=== PATIENT | male | born 1980 | race Caucasian/White ===

== ENCOUNTER 2017-04-30 15:46 | Emergency (ER) | payer OTHER ==
[2017-04-30 16:29] LABS: BASOPHIL % 0.2 % (0.0-0.4); Basophil (Absolute #) 0.02 (0-0.4); Eosinophil % 1.1 % (0.00-5.0); Granulocyte Absolute (ANC) 6.85 (1.4-6.9); Granulocytes % 73.1 % (36.0-66.0); Hematocrit 44.5 % (42-50); Hemoglobin 14.5 gm/dl (12.5-18.0); Lymphocyte (Absolute #) 1.69 (1.0-4.6); Lymphocytes % 18.1 % (24.0-44.0); Mean Cell Volume 95.3 fl (78-100); Mean Corpuscular Hgb Concent. 32.6 g/dl (32-36); Mean Platelet Volume 9.4 fl (6-9.5); Monocytes % 7.5 % (0.0-12.0); Platelet Count 241 K/mm3 (150-450); Red Blood Count 4.67 M/mm3 (4.1-5.6); Red Cell Distribution Width 12.4 % (11.5-14.0); White Blood Count 9.4 K/mm3 (4.0-10.5)
[2017-04-30 16:45] LABS: ANION GAP 11.9 MEQ/L (5-15); BLOOD UREA NITROGEN 8 mg/dL (9-20); CHLORIDE 105 mEq/L (98-107); Calcium 9.1 mg/dL (8.5-10.1); Carbon Dioxide 28.2 mEq/L (21-32); Creatinine 1 0.95 mg/dl (0.55-1.30); EST GLOMERULAR FILTRATION RATE > 60 ML/MIN; Glucose 110 MG/DL (70-110); Potassium 4.3 mEq/L (3.5-5.1); SODIUM 141 mEq/L (136-145)
[2017-04-30 16:56] LABS: ETHYL ALCOHOL < 0.010 % (0.00-0.01)
[2017-04-30 18:15] VITALS: PULSE 80; O2SAT 94
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
[2017-04-30 19:23] VITALS: BP 113/78
== END 2017-04-30 19:24 | disposition home or self-care (01) ==
LOC: ED 15:46
DX: F19.10 Other psychoactive substance abuse, uncomplicated (principal); Z72.0 Tobacco use
CPT/HCPCS: 36415; 80048; 85025; 99282; G0480

== ENCOUNTER 2019-12-12 15:46 | Inpatient (IN) | payer OTHER ==
[2019-12-12] MEDS ORDERED: Sodium Chloride 0.9% 1000 ML 1,000 ML IV STA (16:05)
--- NOTE | 2019-12-12 16:12 | ERPHSYRPT ---
- History of Present Illness Time Seen by Provider: 12/12/19 16:08 Source: patient Exam Limitations: no limitations Patient Subjective Stated Complaint: pt co pain and swelling to right elbow off and on for 2 months, 2 weeks ago he had a abcess develop, Triage Nursing Assessment: pt walked in, resp easy, skin w./d/p. has swelling,warmth and reddness to right elbow, has small open area to elbow, no drainage at present time Physician History: pt co pain and swelling to right elbow off and on for 2 months, 2 weeks ago he had a abcess develop, c/o fever low grade, pain and swelling on right medial cubital area Occurred: yesterday Method of Injury: unknown Quality: constant Severity of Pain-Max: moderate Severity of Pain-Current: moderate Extremities Pain Location: elbow: right (pain, tenderness swelling), forearm: right, wrist: right, hand: right Modifying Factors: Improves With: nothing Associated Symptoms: fever Body Map: 1 - swelling, firm Allergies/Adverse Reactions: methylphenidate HCl [From Ritalin] Allergy (Intermediate, Verified 12/12/19 15:59) Hives Home Medications: Buprenorphine HCl/Naloxone HCl [Suboxone 8 mg-2 mg Tablet Sl] 2.5 ea DAILY 12/12/19 [History] Hx Tetanus, Diphtheria Vaccination/Date Given: No Hx Influenza Vaccination/Date Given: No Hx Pneumococcal Vaccination/Date Given: No Immunizations Up to Date: Yes Travel Risk - International Travel Have you traveled outside of the country in past 3 weeks: No - Coronavirus Screening Are you exhibiting any of the following symptoms?: No Close contact with a COVID-19 positive Pt in past 14-21 Days: No - Review of Systems Constitutional: Fever, Chills Eyes: No Symptoms Ears, Nose, & Throat: No Symptoms Respiratory: No Symptoms Cardiac: No Symptoms Abdominal/Gastrointestinal: No Symptoms Genitourinary Symptoms: No Symptoms Musculoskeletal: Joint Redness, Joint Pain, Joint Swelling Skin: No Symptoms Neurological: No Symptoms Psychological: No Symptoms Endocrine: No Symptoms - Past Medical History Pertinent Past Medical History: No History: Other - Past Surgical History Past Surgical History: No Gastrointestinal: Hernia Repair - Social History Smoking Status: Current every day smoker How long have you smoked: 18 Exposure to second hand smoke: No Alcohol Use: Socially Drug Use: marijuana Patient Lives Alone: No Significant Family History: no pertinent family hx - Nursing Vital Signs Nursing Vital Signs: Initial Vital Signs Pulse Rate 78 12/12/19 15:50 Respiratory Rate 18 12/12/19 15:50 Blood Pressure 129/82 12/12/19 15:50 O2 Sat by Pulse Oximetry 98 12/12/19 15:50 Pain Scale Pain Intensity 7 - Physical Exam General Appearance: no apparent distress Eyes, Ears, Nose, Throat Exam: normal ENT inspection Neck Exam: normal inspection Cardiovascular/Respiratory Exam: chest non-tender Abdominal Exam: non-tender Back Exam: normal inspection Shoulder Exam: normal inspection Elbow/Forearm Exam: limited ROM, pain, soft tissue tenderness, swelling Wrist Exam: normal inspection, soft tissue tenderness, swelling Hand Exam: normal inspection SpO2: 98 - Course Nursing assessment & vital signs reviewed: Yes - Radiology Exams Elbow X-ray Interpretation: Reviewed by me, Negative Ordered Tests: Active Orders 24 hr Category Date Time Status ELBOW (MINIMUM 3 VIEWS) Stat Exams 12/12/19 16:12 Taken BLOOD CULTURE Stat Lab 12/12/19 17:45 Ordered CBC W DIFF Stat Lab 12/12/19 16:05 Ordered CMP Stat Lab 12/12/19 16:05 Ordered Lactic Acid Stat Lab 12/12/19 16:05 Ordered UA W/RFX UR CULTURE Stat Lab 12/12/19 16:07 Uncollected Urine Triage Profile Stat Lab 12/12/19 16:07 Uncollected Medication Summary Discontinued Medications Generic Name Dose Route Start Last Admin Trade Name Freq PRN Reason Stop Dose Admin Heparin Sodium (Beef Lung) Confirm 12/12/19 17:03 Heparin Lock Flush 100 Units/Ml 5ml Syringe Administered 12/12/19 17:04 Dose 500 units .ROUTE .STK-MED ONE Sodium Chloride 1,000 mls @ 999 mls/hr 12/12/19 16:05 Sodium Chloride 0.9% 1000 Ml IV 12/12/19 17:05 .Q1H1M STA Sodium Chloride Confirm 12/12/19 16:14 Sodium Chloride 0.9% 1000 Ml Administered 12/12/19 16:15 Dose 1,000 mls @ ud .ROUTE .STK-MED ONE Lidocaine HCl Confirm 12/12/19 17:08 Xylocaine 1% Hcl 20 Ml Mdv Administered 12/12/19 17:09 Dose 1 ml .ROUTE .STK-MED ONE - Progress Progress: unchanged, pain not gone completely Progress Note: 12/12/19 17:40 Multiple attempts were tried on all 4 extremity right side of the neck left side of the neck as well as infraclavicular way to get IV access. We were unable to get IV access. Will call anesthesia microarray operations vice president to get an IV access. We will admit the patient for further IV antibiotic therapy for his left elbow cellulitis with mild compartment syndrome Discussed with Dr.: Kaitlin Will see patient in: hospital (observation) Counseled pt/family regarding: drug and/or alcohol abuse, lab results, diagnos is, need for follow-up, rad results - Departure Departure Disposition: Observation Clinical Impression: Cellulitis of right upper extremity Condition: Fair Critical Care Time: Yes Critical Care Time(excluding separately billable procedures): Critical 30-74 m ins Referrals: HIRA FISH [Primary Care Provider] -
[2019-12-12] MEDS ORDERED: Sodium Chloride 0.9% 1000 ML 1,000 ML ONE (16:14)
[2019-12-12] MEDS ORDERED: XYLOCAINE 1% HCL 20 ML MDV ONE (17:08)
[2019-12-12] MEDS ORDERED: ENOXAPARIN SODIUM SQ SCH (18:15)
[2019-12-12] MEDS ORDERED: ENOXAPARIN SODIUM SQ ONE (18:37)
[2019-12-12] MEDS ORDERED: Levofloxacin 500MG/100ML D5W 500 MG/100 ML BAG IV ONE (18:37)
[2019-12-12] MEDS: Levofloxacin 500MG/100ML D5W 500 MG/100 ML BAG IV SCH (18:38)
[2019-12-12 18:39] LABS: Absolute Neutrophil Ct (ANC) 21.45 (1.4-6.9); Basophil (Absolute #) 0.01 (0-0.4); Eosinophil (Absolute #) 0.01 (0-0.5); Hematocrit 43.4 % (42-50); Hemoglobin 14.4 gm/dl (12.5-18.0); Lymphocyte (Absolute #) 0.93 (1.0-4.6); Lymphocytes % 3.9 % (24.0-44.0); Mean Cell Volume 98.2 fl (78-100); Mean Corpuscular Hemoglobin 32.6 pg (26-32); Mean Corpuscular Hgb Concent. 33.2 g/dl (32-36); Mean Platelet Volume 9.2 fl (7.5-11.0); Monocyte (Absolute #) 1.16 (0.0-1.3); Monocytes % 4.9 % (0.0-12.0); Neutrophil % 91.2 % (36.0-66.0); Platelet Count 202 K/mm3 (150-450); Red Blood Count 4.42 M/mm3 (4.1-5.6); Red Cell Distribution Width 12.9 % (11.5-14.0); White Blood Count 23.6 K/mm3 (4.0-10.5)
[2019-12-12] MEDS ORDERED: MOTRIN 400 MG PO ONE (18:46)
[2019-12-12 18:52] LABS: ALBUMIN 4.1 g/dL (3.5-5.0); ALKALINE PHOSPHATASE 71 U/L (38-126); ANION GAP 10.4 MEQ/L (5-15); BLOOD UREA NITROGEN 17 mg/dL (9-20); CHLORIDE 97 mmol/L (98-107); Calcium 9.3 mg/dL (8.4-10.2); Carbon Dioxide 29 mmol/L (22-30); Creatinine 1 1.07 mg/dL (0.66-1.25); EST GLOMERULAR FILTRATION RATE > 60.0 ML/MIN; Glucose 129 mg/dL (74-106); Potassium 3.7 mmol/L (3.5-5.1); SGOT/AST 65 U/L (17-59); SGPT/ALT 44 U/L (0-50); SODIUM 133 mmol/L (137-145); Total Protein 8.2 g/dL (6.3-8.2)
--- NOTE | 2019-12-12 19:20 | XRAY ---
Indication: Pain. Comparison: None 3 view right elbow demonstrates mild diffuse soft tissue swelling/edema and at least 3 tiny metallic wire densities in the soft tissues anteriorly. No other bony, articular, or soft tissue abnormalities.
[2019-12-12] MEDS: VANCOMYCIN 1 GRAM/200 ML BAG 1 GM/200 ML PIGGYBACK IV SCH (20:18)
[2019-12-12] MEDS: Sodium Chloride 0.9% 1000 ML 1,000 ML IV SCH (20:22)
[2019-12-13] MEDS: Sodium Chloride 0.9% 1000 ML 1,000 ML IV SCH ×2 (00:27→13:42)
[2019-12-13 01:38] LABS: Appearance CLEAR (CLEAR); Bilirubin NEGATIVE (NEGATIVE); Blood NEGATIVE Ery/ul (0-5); Glucose NEGATIVE (NEGATIVE); Ketones NEGATIVE (NEGATIVE); Leukocyte Esterase NEGATIVE (NEGATIVE); Nitrite NEGATIVE (NEGATIVE); Protein,Urine Dip NEGATIVE (Negative); Specific Gravity 1.017 (1.005-1.025); Urobilinogen 2 mg/dL (0-1)
[2019-12-13 01:43] LABS: Bacteria NONE SEEN /HPF (NEGATIVE)
[2019-12-13] MEDS: VANCOMYCIN 1 GRAM/200 ML BAG 1 GM/200 ML PIGGYBACK IV SCH ×2 (05:49→17:18)
[2019-12-13 07:59] LABS: Amphetamine,Urine NEGATIVE (NEGATIVE); Barbiturate,Urine NEGATIVE (NEGATIVE); Benzodiazepine,Urine NEGATIVE (NEGATIVE); Cocaine,Urine NEGATIVE (NEGATIVE); Methadone,Urine NEGATIVE (NEGATIVE); Opiate,Urine NEGATIVE (NEGATIVE); PCP,Urine NEGATIVE (NEGATIVE); THC,Urine POSITIVE (NEGATIVE)
--- NOTE | 2019-12-13 08:50 | PCM.HP ---
History of Present Illness - Chief Complaint Chief Complaint: right upper extrimity cellulitis History of Present Illness: is a 39 year old male with a 2-3 day history of chills and redness/swelling to right upper extremity. 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 - Review of Systems Constitutional: Fever, Chills Respiratory: No Cough, No Short Of Breath Cardiac: No Chest Pain, No Edema, No Syncope Skin: Cellulitis All Other Systems: Reviewed and Negative Medications & Allergies Home Medications: Home Medication List Buprenorphine HCl/Naloxone HCl [Suboxone 8 mg-2 mg Tablet Sl] 2.5 ea DAILY 12/12/19 [History Confirmed 12/12/19] Allergies/Adverse Reactions: Allergies Allergy/AdvReac Type Severity Reaction Status Date / Time methylphenidate HCl Allergy Intermediate Hives Verified 12/12/19 15:59 [From Ritalin] - Past Medical History Past Medical History: Yes Neurological History: No Pertinent History ENT History: No Pertinent History Cardiac History: No Pertinent History Respiratory History: No Pertinent History Endocrine Medical History: No Pertinent History Musculoskelatal History: No Pertinent History GI Medical History: GERD History: Other Pyscho-Social History: No Pertinent History Male Reproductive Disorders: No Pertinent History Comment: hx of kidney stones - Past Surgical History Past Surgical History: Yes Neuro Surgical History: No Pertinent History Cardiac History: No Pertinent History Respiratory Surgery: No Pertinent History GI Surgical History: Hernia Repair Genitourinary Surgical Hx: No Pertinent History Musculskeletal Surgical Hx: No Pertinent History Male Surgical History: No Pertinent History Other Surgical History: hernia repair as a child - Social History Smoking Status: Current every day smoker How long have you smoked: 20+ Exposure to second hand smoke: No Alcohol: Rarely Drug Use: marijuana Significant Family History: no pertinent family hx - Physical Exam Vital Signs: Vital Signs - 24 hr Temp Pulse Resp BP Pulse Ox 12/13/19 05:00 98.4 F 89 20 130/81 94 L 12/13/19 00:00 98.6 F 84 19 96/62 94 L 12/12/19 19:41 96.3 F 83 18 128/74 99 12/12/19 18:03 98 12/12/19 15:50 78 18 129/82 98 General Appearance: no apparent distress Neurologic Exam: alert, oriented x 3, cooperative Respiratory Exam: normal breath sounds, lungs clear, No respiratory distress Cardiovascular Exam: regular rate/rhythm, normal heart sounds, normal peripheral pulses Gastrointestinal/Abdomen Exam: soft, normal bowel sounds, No tenderness, No mass Extremity Exam: other (moderate swelling, erythema and streaking right medial elbow, warm to palpation. no obvious area of fluctuance, healing superfical abrasion) Wound Assessment: Skin/Wound Assessment Wound/Incision Assessment Start: 12/12/19 20:00 Text: Status: Active Freq: Q6H Protocol: Document 12/13/19 07:49 DS (Rec: 12/13/19 07:59 DS [id number]) Wound/Incision Assessment Right Elbow Wound Assessment Shift Assessment Wound Type cyst Wound Stage Non Pressure Wound Drainage Amount None General Appearance Open to air,Clean/Dry,Reddened Comment right elbow swollen, red, warm to touch,. No drainage noted at this time. No dressing in place at this time. Wound Photo Photo Taken No Results - Labs Lab/Micro Results: Lab Results-Last 24 Hours 12/12/19 12/12/19 12/12/19 Range/Units 00:01 18:28 18:36 WBC 23.6 H (4.0-10.5) K/mm3 RBC 4.42 (4.1-5.6) M/mm3 Hgb 14.4 (12.5-18.0) gm/dl Hct 43.4 (42-50) % MCV 98.2 (78-100) fl MCH 32.6 H (26-32) pg MCHC 33.2 (32-36) g/dl RDW 12.9 (11.5-14.0) % Plt Count 202 (150-450) K/mm3 MPV 9.2 (7.5-11.0) fl Gran % 91.2 H (36.0-66.0) % Eos # (Auto) 0.01 (0-0.5) Absolute Lymphs (auto) 0.93 L (1.0-4.6) Absolute Monos (auto) 1.16 (0.0-1.3) Lymphocytes % 3.9 L (24.0-44.0) % Monocytes % 4.9 (0.0-12.0) % Eosinophils % 0.0 (0.00-5.0) % Basophils % 0.0 (0.0-0.4) % Absolute Granulocytes 21.45 H (1.4-6.9) Basophils # 0.01 (0-0.4) Sodium (137-145) mmol/L Potassium (3.5-5.1) mmol/L Chloride (98-107) mmol/L Carbon Dioxide (22-30) mmol/L Anion Gap (5-15) MEQ/L BUN (9-20) mg/dL Creatinine (0.66-1.25) mg/dL Estimated GFR ML/MIN Glucose (74-106) mg/dL Lactic Acid 0.9 (0.4-2.0) Calcium (8.4-10.2) mg/dL Total Bilirubin (0.2-1.3) mg/dL AST (17-59) U/L ALT (0-50) U/L Alkaline Phosphatase (38-126) U/L Serum Total Protein (6.3-8.2) g/dL Albumin (3.5-5.0) g/dL Urine Color YELLOW (YELLOW) Urine Appearance CLEAR (CLEAR) Urine pH 6.0 (5-6) Ur Specific [place] 1.017 (1.005-1.025) Urine Protein NEGATIVE (Negative) Urine Ketones NEGATIVE (NEGATIVE) Urine Blood NEGATIVE (0-5) Kai/ul Urine Nitrite NEGATIVE (NEGATIVE) Urine Bilirubin NEGATIVE (NEGATIVE) Urine Urobilinogen 2 (0-1) mg/dL Ur Leukocyte Esterase NEGATIVE (NEGATIVE) Urine WBC (Auto) NONE (0-5) /HPF Urine RBC (Auto) NONE (0-2) /HPF U Epithel Cells (Auto) NONE (FEW) /HPF Urine Bacteria (Auto) NONE SEEN (NEGATIVE) /HPF Urine Culture Reflexed NO (NO) Urine Glucose NEGATIVE (NEGATIVE) mg/dL Urine Opiates Level (NEGATIVE) Ur Methadone (NEGATIVE) Urine Barbiturates (NEGATIVE) Ur Phencyclidine (PCP) (NEGATIVE) Urine Amphetamine (NEGATIVE) U Benzodiazepine Level (NEGATIVE) Urine Cocaine (NEGATIVE) Urine Marijuana (THC) (NEGATIVE) 12/12/19 12/13/19 Range/Units 18:36 07:30 WBC (4.0-10.5) K/mm3 RBC (4.1-5.6) M/mm3 Hgb (12.5-18.0) gm/dl Hct (42-50) % MCV (78-100) fl MCH (26-32) pg MCHC (32-36) g/dl RDW (11.5-14.0) % Plt Count (150-450) K/mm3 MPV (7.5-11.0) fl Gran % (36.0-66.0) % Eos # (Auto) (0-0.5) Absolute Lymphs (auto) (1.0-4.6) Absolute Monos (auto) (0.0-1.3) Lymphocytes % (24.0-44.0) % Monocytes % (0.0-12.0) % Eosinophils % (0.00-5.0) % Basophils % (0.0-0.4) % Absolute Granulocytes (1.4-6.9) Basophils # (0-0.4) Sodium 133 L (137-145) mmol/L Potassium 3.7 (3.5-5.1) mmol/L Chloride 97 L (98-107) mmol/L Carbon Dioxide 29 (22-30) mmol/L Anion Gap 10.4 (5-15) MEQ/L BUN 17 (9-20) mg/dL Creatinine 1.07 (0.66-1.25) mg/dL Estimated GFR > 60.0 ML/MIN Glucose 129 H (74-106) mg/dL Lactic Acid (0.4-2.0) Calcium 9.3 (8.4-10.2) mg/dL Total Bilirubin 0.70 (0.2-1.3) mg/dL AST 65 H (17-59) U/L ALT 44 (0-50) U/L Alkaline Phosphatase 71 (38-126) U/L Serum Total Protein 8.2 (6.3-8.2) g/dL Albumin 4.1 (3.5-5.0) g/dL Urine Color (YELLOW) Urine Appearance (CLEAR) Urine pH (5-6) Ur Specific [place] (1.005-1.025) Urine Protein (Negative) Urine Ketones (NEGATIVE) Urine Blood (0-5) Kai/ul Urine Nitrite (NEGATIVE) Urine Bilirubin (NEGATIVE) Urine Urobilinogen (0-1) mg/dL Ur Leukocyte Esterase (NEGATIVE) Urine WBC (Auto) (0-5) /HPF Urine RBC (Auto) (0-2) /HPF U Epithel Cells (Auto) (FEW) /HPF Urine Bacteria (Auto) (NEGATIVE) /HPF Urine Culture Reflexed (NO) Urine Glucose (NEGATIVE) mg/dL Urine Opiates Level NEGATIVE (NEGATIVE) Ur Methadone NEGATIVE (NEGATIVE) Urine Barbiturates NEGATIVE (NEGATIVE) Ur Phencyclidine (PCP) NEGATIVE (NEGATIVE) Urine Amphetamine NEGATIVE (NEGATIVE) U Benzodiazepine Level NEGATIVE (NEGATIVE) Urine Cocaine NEGATIVE (NEGATIVE) Urine Marijuana (THC) POSITIVE (NEGATIVE) - Radiology Impressions Radiology Exams & Impressions: Radiology Procedures Category Date Time Status ELBOW (MINIMUM 3 VIEWS) Stat Exams 12/12/19 16:12 Completed VENOUS UNILAT/LIMITED EXTREMIT [US] Urgent Exams 12/13/19 Ordered Assessment/Plan (1) Cellulitis of right upper extremity Current Visit: Yes Status: Acute Assessment & Plan: continue vanc/levaquin. venous doppler to r/o dvt and evaluate for abscess. if no obvious abscess present then will continue current therapy. Code(s): L03.113 - CELLULITIS OF RIGHT UPPER LIMB (2) Opiate dependence Current Visit: Yes Status: Acute Assessment & Plan: will continue home suboxone, has his own supply with him Code(s): F11.20 - OPIOID DEPENDENCE, UNCOMPLICATED
[2019-12-13] MEDS: MOTRIN 600 MG PO PRN ×2 (09:10→17:18)
[2019-12-13] MEDS ORDERED: BUPRENORPHINE HCL SL SCH (10:00)
[2019-12-13] MEDS ORDERED: NALOXONE HCL SL SCH (10:00)
[2019-12-13] MEDS ORDERED: [UNRECOGNIZED DRUG - OTHER] SL SCH (10:00)
[2019-12-13] MEDS ORDERED: PATIENT OWN MEDICATION SL SCH (10:00)
[2019-12-13] MEDS ORDERED: ENOXAPARIN SODIUM SQ SCH (10:00)
--- NOTE | 2019-12-13 11:05 | XRAY ---
Indication: Right arm cellulitis. Two-dimensional sonogram and color Doppler imaging of the major venous vessels of the right upper extremity was performed. Comparison: None No thrombus seen in the visualized right internal jugular, subclavian, axillary, basilic, cephalic, brachial, radial, and ulnar veins. Veins demonstrate normal compressibility. Venous waveforms are normal with and without augmentation. Targeted ultrasound of the posterior elbow, site of cellulitis demonstrates tiny curvilinear fluid collection in the deep soft tissues measuring 3 mm in thickness. Impression: 1. Right arm negative for venous thrombosis. 2. Posterior elbow demonstrates tiny nonspecific fluid collection.
[2019-12-13] MEDS: Levofloxacin 500MG/100ML D5W 500 MG/100 ML BAG IV SCH (11:24)
[2019-12-13] MEDS: PATIENT OWN MEDICATION SL SCH ×2 (17:19→21:36)
[2019-12-13] MEDS ORDERED: ZOFRAN ODT 4 MG ONE (17:28)
[2019-12-13] MEDS: ZOFRAN ODT 4 MG PO PRN (17:29)
[2019-12-14] MEDS: Sodium Chloride 0.9% 1000 ML 1,000 ML IV SCH ×3 (00:26→22:31)
[2019-12-14] MEDS: VANCOMYCIN 1 GRAM/200 ML BAG 1 GM/200 ML PIGGYBACK IV SCH (07:04)
[2019-12-14 07:09] LABS: Absolute Neutrophil Ct (ANC) 11.38 (1.4-6.9); BASOPHIL % 0.1 % (0.0-0.4); Basophil (Absolute #) 0.01 (0-0.4); Eosinophil % 1.3 % (0.00-5.0); Eosinophil (Absolute #) 0.17 (0-0.5); Hematocrit 46.2 % (42-50); Hemoglobin 14.8 gm/dl (12.5-18.0); Lymphocyte (Absolute #) 1.09 (1.0-4.6); Lymphocytes % 8.2 % (24.0-44.0); Mean Cell Volume 100.9 fl (78-100); Mean Corpuscular Hemoglobin 32.3 pg (26-32); Mean Platelet Volume 9.8 fl (7.5-11.0); Monocytes % 5.2 % (0.0-12.0); Neutrophil % 85.2 % (36.0-66.0); Platelet Count 159 K/mm3 (150-450); Red Blood Count 4.58 M/mm3 (4.1-5.6); Red Cell Distribution Width 13.2 % (11.5-14.0); White Blood Count 13.4 K/mm3 (4.0-10.5)
[2019-12-14] MEDS: MOTRIN 600 MG PO PRN ×3 (07:22→18:06)
[2019-12-14] MEDS: PATIENT OWN MEDICATION SL SCH ×3 (07:24→22:30)
[2019-12-14 07:36] LABS: ALBUMIN 3.4 g/dL (3.5-5.0); ALKALINE PHOSPHATASE 93 U/L (38-126); ANION GAP 8.2 MEQ/L (5-15); BLOOD UREA NITROGEN 16 mg/dL (9-20); CHLORIDE 104 mmol/L (98-107); Calcium 9.1 mg/dL (8.4-10.2); Carbon Dioxide 26 mmol/L (22-30); Creatinine 1 0.73 mg/dL (0.66-1.25); EST GLOMERULAR FILTRATION RATE > 60.0 ML/MIN; Glucose 124 mg/dL (74-106); Potassium 4.2 mmol/L (3.5-5.1); SGOT/AST 86 U/L (17-59); SGPT/ALT 68 U/L (0-50); SODIUM 134 mmol/L (137-145); Total Protein 7.4 g/dL (6.3-8.2)
--- NOTE | 2019-12-14 08:57 | PCM.NOTE ---
Date and Time: 12/14/19 0854 Subjective Assessment: Pt would like to d/c home on IV antibiotics. He is unsure if the arm is better. Anabela po but decreased appetite. - Review of Systems Constitutional: No Fever Abdominal/Gastrointestinal: No Vomiting Objective Exam General Appearance: no apparent distress, alert Neurologic Exam: oriented x 3, cooperative Skin Exam: warm, dry Wound Assessment: Skin/Wound Assessment Wound/Incision Assessment Start: 12/12/19 20:00 Text: Status: Active Freq: Q6H Protocol: Document 12/14/19 07:18 BSUHRA (Rec: 12/14/19 07:20 BUSHRA [id number]) Wound/Incision Assessment Right Elbow Wound Assessment Shift Assessment Wound Type cyst Wound Stage Non Pressure Wound Drainage Amount None General Appearance Open to air,Clean/Dry,Reddened Comment right elbow swollen, not as red today more pink in color, warm to touch. No drainage noted at this time. No dressing in place at this time . Wound Photo Photo Taken No Ears, Nose, Throat Exam: moist mucous membranes Neck Exam: normal inspection Respiratory Exam: normal breath sounds, lungs clear, No crackles/rales, No rhonchi, No wheezing Cardiovascular Exam: regular rate/rhythm, normal heart sounds, No murmur Gastrointestinal/Abdomen Exam: soft, normal bowel sounds, No tenderness, No distention, No mass Extremity Exam: other (RUE; elbow and surrounding area erythematous, edematous, and indurated. No fluctuance throughtou. On the anterior medial aspect there is an approx 2 cm protrusion, soft, no n fluctuant. ttp throughout. mild erythema to hand.) Back Exam: normal inspection, No rash OBJECTIVE DATA Vital Signs: Vital Signs - 24 hr Temp Pulse Resp BP BP Pulse Ox 12/14/19 07:53 99.1 F 73 16 111/61 99 12/14/19 04:00 98.7 F 76 20 101/54 95 12/14/19 00:00 98.6 F 111/56 98 12/13/19 20:00 98.6 F 84 20 105/59 94 L 12/13/19 16:00 98.3 F 79 20 115/69 12/13/19 13:00 98.2 F 76 16 114/59 94 L 12/13/19 09:00 99.5 F 80 16 124/72 98 Pain Assessment - Last Documented Pain Intensity 4 Pain Scale Used 0-10 Pain Scale Intake and Output: Intake & Output 12/11/19 12/12/19 12/13/19 12/14/19 11:59 11:59 11:59 11:59 Intake Total 2294 5815 Output Total 750 Balance 2298 0764 Weight 69.6 kg Lab Results: Lab Results-Last 24 Hours 12/14/19 12/14/19 12/14/19 Range/Units 06:45 06:45 06:45 WBC 13.4 H (4.0-10.5) K/mm3 RBC 4.58 (4.1-5.6) M/mm3 Hgb 14.8 (12.5-18.0) gm/dl Hct 46.2 (42-50) % MCV 100.9 H (78-100) fl MCH 32.3 H (26-32) pg MCHC 32.0 (32-36) g/dl RDW 13.2 (11.5-14.0) % Plt Count 159 (150-450) K/mm3 MPV 9.8 (7.5-11.0) fl Gran % 85.2 H (36.0-66.0) % Eos # (Auto) 0.17 (0-0.5) Absolute Lymphs (auto) 1.09 (1.0-4.6) Absolute Monos (auto) 0.70 (0.0-1.3) Lymphocytes % 8.2 L (24.0-44.0) % Monocytes % 5.2 (0.0-12.0) % Eosinophils % 1.3 (0.00-5.0) % Basophils % 0.1 (0.0-0.4) % Absolute Granulocytes 11.38 H (1.4-6.9) Basophils # 0.01 (0-0.4) Sodium 134 L (137-145) mmol/L Potassium 4.2 (3.5-5.1) mmol/L Chloride 104 (98-107) mmol/L Carbon Dioxide 26 (22-30) mmol/L Anion Gap 8.2 (5-15) MEQ/L BUN 16 (9-20) mg/dL Creatinine 0.73 (0.66-1.25) mg/dL Estimated GFR > 60.0 ML/MIN Glucose 124 H (74-106) mg/dL Calcium 9.1 (8.4-10.2) mg/dL Total Bilirubin 0.50 (0.2-1.3) mg/dL AST 86 H (17-59) U/L ALT 68 H (0-50) U/L Alkaline Phosphatase 93 (38-126) U/L Serum Total Protein 7.4 (6.3-8.2) g/dL Albumin 3.4 L (3.5-5.0) g/dL Vancomycin Trough 6.37 L (10-20) ug/mL Radiology Exams: Radiology Procedures Category Date Time Status ELBOW (MINIMUM 3 VIEWS) Stat Exams 12/12/19 16:12 Completed VENOUS UNILAT/LIMITED EXTREMIT [US] Urgent Exams 12/13/19 10:51 Completed Assessment/Plan (1) Cellulitis of right upper extremity Current Visit: Yes Status: Acute Assessment & Plan: If any worsening would repeat imaging to r/o abscess, but yesterday only tiny abscess was seen. On vancomycin and levaquin. Will do at least 1 more day IV antibiotics here, then Dr. Duque can decide tomorrow, in light of pt's previous IVDA hx, whether discharge on IV antibiotics is appropriate. Code(s): L03.113 - CELLULITIS OF RIGHT UPPER LIMB (2) Opiate dependence Current Visit: Yes Status: Chronic Code(s): F11.20 - OPIOID DEPENDENCE, UNCOMPLICATED
[2019-12-14] MEDS: Levofloxacin 500MG/100ML D5W 500 MG/100 ML BAG IV SCH (09:50)
[2019-12-14] MEDS: ZOFRAN ODT 4 MG PO PRN ×2 (12:42→17:59)
[2019-12-14] MEDS: VANCOMYCIN 1.5 GRAM/300 ML BAG 1.5 GM/300 ML PIGGYBACK IV SCH (17:59)
[2019-12-14] MEDS: TYLENOL 325 MG PO PRN (19:31)
[2019-12-14 21:47] LABS: INFLUENZA A NEGATIVE (NEGATIVE); INFLUENZA B NEGATIVE (NEGATIVE); RESPIRATORY SYNCTIAL VIRUS NEGATIVE (Negative)
[2019-12-15] MEDS: MOTRIN 600 MG PO PRN ×2 (05:35→12:11)
[2019-12-15] MEDS: VANCOMYCIN 1.5 GRAM/300 ML BAG 1.5 GM/300 ML PIGGYBACK IV SCH ×2 (05:35→17:08)
--- NOTE | 2019-12-15 08:09 | PCM.NOTE ---
Date and Time: 12/15/19807 Subjective Assessment: pt still has significant pain, swelling to right elbow and ran fever of 102 last night. covid and flu swab were ran and negative. Objective Exam General Appearance: no apparent distress, alert Wound Assessment: Skin/Wound Assessment Wound/Incision Assessment Start: 12/12/19 20:00 Text: Status: Active Freq: Q6H Protocol: Document 12/15/19 02:00 MS (Rec: 12/15/19 02:25 MS [id number]) Wound/Incision Assessment Right Elbow Wound Assessment Shift Assessment Wound Type cellulitis Wound Stage Non Pressure Wound Drainage Amount None General Appearance Open to air,Clean/Dry,Reddened Comment right elbow swollen, warm to touch. No drainage noted at this time. No dressing in place at this time. Wound Photo Photo Taken No Respiratory Exam: normal breath sounds, lungs clear, No respiratory distress Cardiovascular Exam: regular rate/rhythm, normal heart sounds Gastrointestinal/Abdomen Exam: soft, No tenderness, No mass Extremity Exam: other (redness, swelling and decr rom rt elbow, warm to palpation) OBJECTIVE DATA Vital Signs: Vital Signs - 24 hr Temp Pulse Resp BP Pulse Ox 12/15/19 07:53 98.4 F 66 18 109/65 98 12/15/19 04:00 98.3 F 67 18 101/60 96 12/15/19 00:00 98.4 F 68 18 120/64 96 12/14/19 20:00 102.1 F 88 18 119/56 96 12/14/19 16:00 101.0 F 84 18 118/57 96 12/14/19 12:00 100.5 F 83 16 130/69 98 Pain Assessment - Last Documented Pain Intensity 5 Pain Scale [facility] Intake and Output: Intake & Output 12/12/19 12/13/19 12/14/19 12/15/19 11:59 11:59 11:59 11:59 Intake Total 2294 5809 3392 Output Total 570 1700 Balance 2294 4613 1692 Weight 69.6 kg Lab Results: Lab Results-Last 24 Hours 12/14/19 12/14/19 Range/Units 21:00 21:00 Influenza Type A Ag NEGATIVE (NEGATIVE) Influenza Type B Ag NEGATIVE (NEGATIVE) RSV (PCR) NEGATIVE (Negative) SARS-CoV-2 (PCR) NEGATIVE (NEGATIVE) Radiology Exams: Radiology Procedures Category Date Time Status MRI UPPER EXT JOINT W/CONTRAST [MRI] Routine Exams 12/15/19 08:06 Ordered VENOUS UNILAT/LIMITED EXTREMIT [US] Urgent Exams 12/13/19 10:51 Completed Multi-Disciplinary Progress Notes: Multi-Disciplinary Progress Notes 12/14/19 09:44 Case Management Note by Angelina Driscoll REVIEWED CHART, NO NEW NEEDS IDENTIFIED FOR DC AT THIS TIME. WILL SEE WHAT DR. NOLAN DECIDES TOMORROW ABOUT POSSIBLE OUTPT ANTIBIOTIC THERAPY Initialized on 12/14/19 09:44 - END OF NOTE Assessment/Plan (1) Cellulitis of right upper extremity Current Visit: Yes Status: Acute Assessment & Plan: check cbc, esr and MRI to r/o septic bursa or septic arthritis rt elbow, mild improvement but no obvious subcut abscess seen. cont vanc and levaquin Code(s): L03.113 - CELLULITIS OF RIGHT UPPER LIMB (2) Opiate dependence Current Visit: Yes Status: Chronic Code(s): F11.20 - OPIOID DEPENDENCE, UNCOMPLICATED
[2019-12-15] MEDS: PATIENT OWN MEDICATION SL SCH ×3 (08:12→21:08)
[2019-12-15] MEDS: Sodium Chloride 0.9% 1000 ML 1,000 ML IV SCH ×2 (08:34→14:27)
[2019-12-15] MEDS: Levofloxacin 500MG/100ML D5W 500 MG/100 ML BAG IV SCH (09:02)
[2019-12-15 09:35] LABS: Hematocrit 42.8 % (42-50); Mean Cell Volume 98.6 fl (78-100); Mean Corpuscular Hemoglobin 32.3 pg (26-32); Mean Corpuscular Hgb Concent. 32.7 g/dl (32-36); Mean Platelet Volume 10.6 fl (7.5-11.0); Platelet Count 162 K/mm3 (150-450); Red Blood Count 4.34 M/mm3 (4.1-5.6); Red Cell Distribution Width 12.8 % (11.5-14.0); White Blood Count 10.9 K/mm3 (4.0-10.5)
[2019-12-15] MEDS: ENOXAPARIN SODIUM SQ SCH (09:37)
[2019-12-15 10:04] LABS: Erythrocyte Sedimentation Rate 54 mm/hr (0-15)
[2019-12-15 10:13] LABS: Basophil 1 % (0.0-1.0); Lymphocytes 18 % (24-44); Monocyte 3 % (0.0-12.0); Neutrophils 78 % (36.-66.); Platelet Estimate NORMAL (NORMAL); Total Cells Counted 100
[2019-12-15 10:23] LABS: ANION GAP 7.7 MEQ/L (5-15); BLOOD UREA NITROGEN 11 mg/dL (9-20); CHLORIDE 105 mmol/L (98-107); Calcium 9.1 mg/dL (8.4-10.2); Carbon Dioxide 30 mmol/L (22-30); Creatinine 1 0.73 mg/dL (0.66-1.25); EST GLOMERULAR FILTRATION RATE > 60.0 ML/MIN; Glucose 106 mg/dL (74-106); SODIUM 138 mmol/L (137-145)
[2019-12-15] MEDS: ZOFRAN ODT 4 MG PO PRN (12:11)
[2019-12-15] MEDS: TYLENOL 325 MG PO PRN (21:08)
[2019-12-16] MEDS: Sodium Chloride 0.9% 1000 ML 1,000 ML IV SCH ×3 (03:44→21:14)
[2019-12-16 06:37] LABS: BLOOD UREA NITROGEN 11 mg/dL (9-20); CHLORIDE 105 mmol/L (98-107); Calcium 8.5 mg/dL (8.4-10.2); Carbon Dioxide 28 mmol/L (22-30); Creatinine 1 0.77 mg/dL (0.66-1.25); EST GLOMERULAR FILTRATION RATE > 60.0 ML/MIN; Glucose 105 mg/dL (74-106); Potassium 4.4 mmol/L (3.5-5.1); SODIUM 134 mmol/L (137-145)
[2019-12-16 06:45] LABS: Absolute Neutrophil Ct (ANC) 6.62 (1.4-6.9); BASOPHIL % 0.1 % (0.0-0.4); Basophil (Absolute #) 0.01 (0-0.4); Eosinophil (Absolute #) 0.18 (0-0.5); Hematocrit 38.5 % (42-50); Hemoglobin 12.5 gm/dl (12.5-18.0); Lymphocyte (Absolute #) 1.44 (1.0-4.6); Lymphocytes % 15.9 % (24.0-44.0); Mean Cell Volume 98.7 fl (78-100); Mean Corpuscular Hemoglobin 32.1 pg (26-32); Mean Corpuscular Hgb Concent. 32.5 g/dl (32-36); Monocyte (Absolute #) 0.81 (0.0-1.3); Monocytes % 8.9 % (0.0-12.0); Neutrophil % 73.1 % (36.0-66.0); Platelet Count 210 K/mm3 (150-450); Red Cell Distribution Width 12.7 % (11.5-14.0); White Blood Count 9.1 K/mm3 (4.0-10.5)
[2019-12-16] MEDS: TYLENOL 325 MG PO PRN ×2 (07:32→18:34)
[2019-12-16] MEDS: PATIENT OWN MEDICATION SL SCH ×3 (07:34→21:14)
--- NOTE | 2019-12-16 08:06 | PCM.NOTE ---
Date and Time: 12/16/19803 Subjective Assessment: patient does not feel there is much if any improvement in his elbow and upper arm, still swollen and painful Objective Exam General Appearance: no apparent distress Neurologic Exam: alert, oriented x 3 Wound Assessment: Skin/Wound Assessment Wound/Incision Assessment Start: 12/12/19 20:00 Text: Status: Active Freq: Q6H Protocol: Document 12/16/19 02:00 MS (Rec: 12/16/19 02:55 MS [id number]) Wound/Incision Assessment Right Elbow Wound Assessment Shift Assessment Wound Type cellulitis Wound Stage Non Pressure Wound Drainage Amount None General Appearance Open to air,Clean/Dry,Reddened Comment right elbow swollen, warm to touch. No drainage noted at this time. No dressing in place at this time. Wound Photo Photo Taken No Respiratory Exam: normal breath sounds, lungs clear, No respiratory distress Cardiovascular Exam: regular rate/rhythm, normal heart sounds Extremity Exam: other (extensive erythema, swelling to right elbow and medial upper arm, warm) OBJECTIVE DATA Vital Signs: Vital Signs - 24 hr Temp Pulse Resp BP Pulse Ox 12/16/19 07:24 99.8 F 12/16/19 07:17 100.2 F 67 18 132/63 94 L 12/16/19 03:58 99.2 F 68 19 136/67 94 L 12/16/19 00:00 99.4 F 79 17 123/56 94 L 12/15/19 20:00 98.6 F 72 18 137/80 98 12/15/19 16:00 98.9 F 58 L 16 115/64 97 12/15/19 12:00 98.4 F 66 18 130/74 96 Pain Assessment - Last Documented Pain Intensity 2 Pain Scale Used 0-10 Pain Scale Intake and Output: Intake & Output 12/13/19 12/14/19 12/15/19 12/16/19 11:59 11:59 11:59 11:59 Intake Total 2294 5815 3392 4380 Output Total 750 1700 1280 Balance 2294 0577 1692 3100 Weight 69.6 kg Lab Results: Lab Results-Last 24 Hours 12/15/19 12/15/19 12/16/19 Range/Units 09:20 09:20 05:40 WBC 10.9 H (4.0-10.5) K/mm3 RBC 4.34 (4.1-5.6) M/mm3 Hgb 14.0 (12.5-18.0) gm/dl Hct 42.8 (42-50) % MCV 98.6 (78-100) fl MCH 32.3 H (26-32) pg MCHC 32.7 (32-36) g/dl RDW 12.8 (11.5-14.0) % Plt Count 162 (150-450) K/mm3 MPV 10.6 (7.5-11.0) fl Gran % (36.0-66.0) % Eos # (Auto) (0-0.5) Absolute Lymphs (auto) (1.0-4.6) Absolute Monos (auto) (0.0-1.3) Lymphocytes % (24.0-44.0) % Monocytes % (0.0-12.0) % Eosinophils % (0.00-5.0) % Basophils % (0.0-0.4) % Absolute Granulocytes (1.4-6.9) Segmented Neutrophils 78 H (36.-66.) % Lymphocytes (Manual) 18 L (24-44) % Monocytes (Manual) 3 (0.0-12.0) % Basophils (Manual) 1 (0.0-1.0) % Basophils # (0-0.4) Platelet Estimate NORMAL (NORMAL) RBC Morphology NORMAL ESR 54 H (0-15) mm/hr Sodium 138 (137-145) mmol/L Potassium 4.0 (3.5-5.1) mmol/L Chloride 105 (98-107) mmol/L Carbon Dioxide 30 (22-30) mmol/L Anion Gap 7.7 (5-15) MEQ/L BUN 11 (9-20) mg/dL Creatinine 0.73 (0.66-1.25) mg/dL Estimated GFR > 60.0 ML/MIN Glucose 106 (74-106) mg/dL Calcium 9.1 (8.4-10.2) mg/dL Vancomycin Trough 9.47 L (10-20) ug/mL 12/16/19 12/16/19 Range/Units 05:40 05:40 WBC 9.1 (4.0-10.5) K/mm3 RBC 3.90 L (4.1-5.6) M/mm3 Hgb 12.5 (12.5-18.0) gm/dl Hct 38.5 L (42-50) % MCV 98.7 (78-100) fl MCH 32.1 H (26-32) pg MCHC 32.5 (32-36) g/dl RDW 12.7 (11.5-14.0) % Plt Count 210 (150-450) K/mm3 MPV 11.0 (7.5-11.0) fl Gran % 73.1 H (36.0-66.0) % Eos # (Auto) 0.18 (0-0.5) Absolute Lymphs (auto) 1.44 (1.0-4.6) Absolute Monos (auto) 0.81 (0.0-1.3) Lymphocytes % 15.9 L (24.0-44.0) % Monocytes % 8.9 (0.0-12.0) % Eosinophils % 2.0 (0.00-5.0) % Basophils % 0.1 (0.0-0.4) % Absolute Granulocytes 6.62 (1.4-6.9) Segmented Neutrophils (36.-66.) % Lymphocytes (Manual) (24-44) % Monocytes (Manual) (0.0-12.0) % Basophils (Manual) (0.0-1.0) % Basophils # 0.01 (0-0.4) Platelet Estimate (NORMAL) RBC Morphology ESR (0-15) mm/hr Sodium 134 L (137-145) mmol/L Potassium 4.4 (3.5-5.1) mmol/L Chloride 105 (98-107) mmol/L Carbon Dioxide 28 (22-30) mmol/L Anion Gap 5.0 (5-15) MEQ/L BUN 11 (9-20) mg/dL Creatinine 0.77 (0.66-1.25) mg/dL Estimated GFR > 60.0 ML/MIN Glucose 105 (74-106) mg/dL Calcium 8.5 (8.4-10.2) mg/dL Vancomycin Trough (10-20) ug/mL Multi-Disciplinary Progress Notes: Multi-Disciplinary Progress Notes 12/15/19 17:16 Physical Therapy Note by Amy Jauregui PT. REPORTS MINIMAL CHANGE IN SX R UE. RAN FEVER LAST NIGHT. SLIGHT DECREASE IN BRIGHT RED COLOR OF ERYTHEMA. EDEMA IN R UE STILL PERSISTENT. APPLIED BARRIER OINTMENT TO R BRACHIUM AND FOREARM FOR HYDRATION. NO DRAINAGE FROM SMALL OPENING AT ELBOW DESPITE APPLICATION OF PRESSURE TO SEE IF DRAINAGE WOULD RELEASE. WILL CONT. MONITOR SKIN DURING STAY. AMY JAUREGUI, PT Initialized on 12/15/19 17:16 - END OF NOTE 12/15/19 10:06 Case Management Note by Angelina Driscoll PATIENT STILL REQUIRING ACUTE CARE- WILL CONTINUE TO MONITOR AND FOLLOW FOR NEEDS AT TIME OF DC Initialized on 12/15/19 10:06 - END OF NOTE Assessment/Plan (1) Cellulitis of right upper extremity Current Visit: Yes Status: Acute Assessment & Plan: continue vanc, change from levaquin to zosyn. hx of IV drug abuse and needle fragments seen in soft tissue on imaging Code(s): L03.113 - CELLULITIS OF RIGHT UPPER LIMB (2) Opiate dependence Current Visit: Yes Status: Chronic Code(s): F11.20 - OPIOID DEPENDENCE, UNCOMPLICATED
[2019-12-16] MEDS: VANCOMYCIN 1.5 GRAM/300 ML BAG 1.5 GM/300 ML PIGGYBACK IV SCH (08:14)
[2019-12-16] MEDS: ENOXAPARIN SODIUM SQ SCH (09:48)
[2019-12-16] MEDS ORDERED: FLUZONE QUAD 2020-2021 SYRINGE IM ONE (10:30)
[2019-12-16] MEDS: Zosyn 3.375 GM Vial 3.375 GM in Sodium Chloride 100ML MINI-BAG PLUS 100 ML IV SCH ×3 (11:15→18:36)
[2019-12-16] MEDS: VANCOMYCIN 1 GRAM/200 ML BAG 1 GM/200 ML PIGGYBACK IV SCH ×2 (16:12→22:56)
[2019-12-16] MEDS: MOTRIN 600 MG PO PRN (21:13)
[2019-12-17] MEDS: Zosyn 3.375 GM Vial 3.375 GM in Sodium Chloride 100ML MINI-BAG PLUS 100 ML IV SCH ×4 (01:41→18:18)
[2019-12-17 05:14] LABS: Hematocrit 39.3 % (42-50); Hemoglobin 12.9 gm/dl (12.5-18.0); Mean Corpuscular Hemoglobin 32.2 pg (26-32); Mean Corpuscular Hgb Concent. 32.8 g/dl (32-36); Mean Platelet Volume 9.7 fl (7.5-11.0); Platelet Count 205 K/mm3 (150-450); Red Blood Count 4.01 M/mm3 (4.1-5.6); Red Cell Distribution Width 12.6 % (11.5-14.0)
[2019-12-17 05:28] LABS: ALBUMIN 2.8 g/dL (3.5-5.0); ALKALINE PHOSPHATASE 77 U/L (38-126); ANION GAP 5.2 MEQ/L (5-15); BLOOD UREA NITROGEN 10 mg/dL (9-20); CHLORIDE 108 mmol/L (98-107); Calcium 8.6 mg/dL (8.4-10.2); Carbon Dioxide 29 mmol/L (22-30); Creatinine 1 0.77 mg/dL (0.66-1.25); EST GLOMERULAR FILTRATION RATE > 60.0 ML/MIN; Glucose 118 mg/dL (74-106); Potassium 3.9 mmol/L (3.5-5.1); SGOT/AST 52 U/L (17-59); SGPT/ALT 63 U/L (0-50); SODIUM 138 mmol/L (137-145); Total Protein 6.6 g/dL (6.3-8.2)
[2019-12-17] MEDS: Sodium Chloride 0.9% 1000 ML 1,000 ML IV SCH (05:56)
[2019-12-17] MEDS: VANCOMYCIN 1 GRAM/200 ML BAG 1 GM/200 ML PIGGYBACK IV SCH ×2 (07:47→18:18)
[2019-12-17] MEDS: PATIENT OWN MEDICATION SL SCH ×3 (07:47→21:04)
[2019-12-17] MEDS: MOTRIN 600 MG PO PRN ×2 (07:47→21:02)
[2019-12-17 08:19] LABS: Eosinophil 4 % (0.00-3.0); Lymphocytes 25 % (24-44); Monocyte 6 % (0.0-12.0); Neutrophils 65 % (36.-66.); Platelet Estimate NORMAL (NORMAL); Total Cells Counted 100
--- NOTE | 2019-12-17 08:20 | PCM.NOTE ---
Date and Time: 12/17/19818 Subjective Assessment: patient doing well at this time, notes improvement in pain, swelling and redness and is very encouraged today. Objective Exam General Appearance: no apparent distress, alert Wound Assessment: Skin/Wound Assessment Wound/Incision Assessment Start: 12/12/19 20:00 Text: Status: Active Freq: Q6H Protocol: Document 12/17/19 02:00 MS (Rec: 12/17/19 04:20 MS [id number]) Wound/Incision Assessment Right Elbow Wound Assessment Shift Assessment Wound Type cellulitis Wound Stage Non Pressure Wound Drainage Amount None Drainage Odor None/Absent General Appearance Open to air,Clean/Dry,Reddened Surrounding Tissue Bright Red Comment right elbow swollen, warm to touch, extends up into upper arm. - redness is slightly more localized to elbow at this time, not as high into the axilla area Wound Photo Photo Taken No Respiratory Exam: normal breath sounds, lungs clear, No respiratory distress Cardiovascular Exam: regular rate/rhythm, normal heart sounds Gastrointestinal/Abdomen Exam: soft, No tenderness, No mass Extremity Exam: other (improved redness and warmth to right elbow and upper arm) OBJECTIVE DATA Vital Signs: Vital Signs - 24 hr Temp Pulse Resp BP Pulse Ox 12/17/19 06:58 97.8 F 61 16 128/69 96 12/17/19 02:07 97.8 F 60 18 142/87 98 12/16/19 19:55 100.1 F 82 18 158/86 98 12/16/19 15:36 98.9 F 65 18 128/74 97 12/16/19 11:19 98.7 F 65 16 144/81 98 Pain Assessment - Last Documented Pain Intensity 3 Pain Scale Used 0-10 Pain Scale Intake and Output: Intake & Output 12/14/19 12/15/19 12/16/19 12/17/19 11:59 11:59 11:59 11:59 Intake Total 5815 3392 4740 4328 Output Total 750 1700 2980 4050 Balance 5065 1692 1760 278 Lab Results: Lab Results-Last 24 Hours 12/17/19 12/17/19 Range/Units 04:29 04:29 WBC 8.0 (4.0-10.5) K/mm3 RBC 4.01 L (4.1-5.6) M/mm3 Hgb 12.9 (12.5-18.0) gm/dl Hct 39.3 L (42-50) % MCV 98.0 (78-100) fl MCH 32.2 H (26-32) pg MCHC 32.8 (32-36) g/dl RDW 12.6 (11.5-14.0) % Plt Count 205 (150-450) K/mm3 MPV 9.7 (7.5-11.0) fl Sodium 138 (137-145) mmol/L Potassium 3.9 (3.5-5.1) mmol/L Chloride 108 H (98-107) mmol/L Carbon Dioxide 29 (22-30) mmol/L Anion Gap 5.2 (5-15) MEQ/L BUN 10 (9-20) mg/dL Creatinine 0.77 (0.66-1.25) mg/dL Estimated GFR > 60.0 ML/MIN Glucose 118 H (74-106) mg/dL Calcium 8.6 (8.4-10.2) mg/dL Total Bilirubin 0.40 (0.2-1.3) mg/dL AST 52 (17-59) U/L ALT 63 H (0-50) U/L Alkaline Phosphatase 77 (38-126) U/L Serum Total Protein 6.6 (6.3-8.2) g/dL Albumin 2.8 L (3.5-5.0) g/dL Multi-Disciplinary Progress Notes: Multi-Disciplinary Progress Notes 12/16/19 11:28 Physical Therapy Note by Isabel Feliz PT. REPORTS NO CHANGE IN SX R UE. DOES REPORT HE HAS TWO AREAS ON LEFT HAND WHICH HE "SQUEEZED" PUS FROM THIS MORNING. NOTING MULTIPLE SCABBED AREAS ON LEFT AND RIGHT HAND. AREAS ON LEFT HAND PATIENT REFERENCING ON THE PIP AND BACK OF LEFT HAND. NO DRAINAGE NOTED OR ABLE TO EXPRESS WITH NOTED CALLOUSING AROUND BOTH AREAS. PATIENT ACKNOWLEDGES HE PICKS THESE AREAS OFTEN. REPORTED PATIENT'S STATEMENTS TO NURSE REGARDING PUS BUT NONE NOTED. RECOMMENDED AND NURSE AGREED WE SHOULD COVER AREAS. CLEANSED WITH NS THEN APPLIED FLEX STRIP BAND-AIDS TO BOTH AREAS. RIGHT ELBOW CONTINUES TO BE RED AND SWOLLEN. NO OPEN AREA. SCAB ON RIGHT ELBOW POSTERIORLY EASILY FLAKED OFF BUT NO EXUDATE EVEN WITH ATTEMPTS TO EXPRESS. APPLIED BARRIER OINTMENT TO ENTIRE RIGHT ARM FOR HYDRATOIN. WILL CONT. MONITOR SKIN DURING STAY. Initialized on 12/16/19 11:28 - END OF NOTE 12/16/19 08:56 Case Management Note by Angelina Driscoll PATIENT STIL REQUIRING ACUTE CARE- WILL CONTINUE TO MONITOR FOR NEEDS AT DC Initialized on 12/16/19 08:56 - END OF NOTE 12/16/19 08:41 Pharmacy Note by Cole Burrell Vancomycin trough low at 9.47. Will change to q8h schedule to increase level. Initialized on 12/16/19 08:41 - END OF NOTE Assessment/Plan (1) Cellulitis of right upper extremity Current Visit: Yes Status: Acute Assessment & Plan: dramatically improved on vanc, changed to zosyn yesterday and doing much better at this time. Code(s): L03.113 - CELLULITIS OF RIGHT UPPER LIMB (2) Opiate dependence Current Visit: Yes Status: Chronic Code(s): F11.20 - OPIOID DEPENDENCE, UNCOMPLICATED
[2019-12-17] MEDS: ENOXAPARIN SODIUM SQ SCH (10:08)
[2019-12-17] MEDS: CLEOCIN 150 MG CAPSULE PO SCH ×2 (18:21→23:51)
[2019-12-17] MEDS: TYLENOL 325 MG PO PRN (19:29)
[2019-12-18] MEDS: CLEOCIN 150 MG CAPSULE PO SCH (06:22)
[2019-12-18] MEDS ORDERED: TROUGH DRUG LEVELS IJ ONE (07:30)
[2019-12-18 07:31] VITALS: BP 139/72; PULSE 70; O2SAT 96
[2019-12-18] MEDS: ENOXAPARIN SODIUM SQ SCH (09:29)
[2019-12-18] MEDS: PATIENT OWN MEDICATION SL SCH (09:29)
--- NOTE | 2019-12-20 14:17 | DS ---
DISCHARGE DIAGNOSIS: RIGHT ARM CELLULITIS. 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 He recently hit his elbow and began having problems with swelling and redness in the joint. He got quite sick with running a fever and great amount of swelling in his right arm. He was brought into the hospital from the emergency room and was treated with IV Vancomycin and Zosyn initially. The patient took several days to improve. He was changed from the IV antibiotic to Clindamycin on 12/17/2019. The patient reports his arm is much better at the time of my evaluation and there was still a fair amount of swelling over the elbow and redness but the patient assures me this is much better. He had been seen by Dr. Duque through his hospital stay until 12/18/2019 when I saw him. The patient was quite insistent upon going home and reports without discharge order he will walk out AMA. The patient's last evaluation on his CBC showed his white count to be 8,000, hemoglobin 12.9, PLT count 205,000. Metabolic panel showed BUN 10, creatinine 0.77. Electrolytes were normal. Liver enzymes were normal other than slight elevation in his SGPT at 63. The patient did have a urine drug screen which was positive for THC but negative otherwise. The patient apparently does have a history of drug abuse but he has been clean for several years, according to what he is telling me presently. The patient's cultures are currently pending. He had culture done of his left index finger but more concerning area was actually on his right arm especially over the elbow. The patient did have evaluation of venous ultrasound of the right arm which was negative for venous thrombosis and there is tiny nonspecific fluid collection noted on the ultrasound. X-ray of the elbow otherwise showed mild, diffuse soft tissue swelling, edema and at least three tiny metallic densities in the soft tissue anteriorly but no other articular or soft tissue abnormality, this is consistent with the patient's previous history of IV drug abuse. At this point the patient will be sent home on Clindamycin at 300 mg every six hours for an additional ten days. He has requested ibuprofen 800 mg tablet to take two or three times a day for pain. He specifically said that he did not want any narcotic medication. The patient will be followed up in the office within a week. He was described the concerns for the possibility of medication reactions with diarrhea and he is to let us know if he has any problems with this so we can check the stool for possible development of Clostridium difficile.
== END 2019-12-18 09:43 | disposition home or self-care (01) | DRG 603 ==
LOC: ED 15:46 → MED SURG 18:54 → OBSVTOIN 12-14 18:50
PROVIDERS: ADMIT Family Medicine; ATTEND Family Medicine
DX: L03.113 Cellulitis of right upper limb (principal); F11.20 Opioid dependence, uncomplicated; F17.200 Nicotine dependence, unspecified, uncomplicated
CPT/HCPCS: 36000; 36415; 73080; 76942; 80048; 80053; 80202; 80307; 81001; 83605; 85025; 85652; 87040; 87070; 87631; 93971; 96365; 96372; 99284; 99291; G0378; J1642; J1650; J1956; Q0162; U0003; A9270-GY; J3370

== ENCOUNTER 2022-11-06 11:32 | Day surgery (SDC) | payer OTHER ==
[2022-11-06] MEDS ORDERED: Depo-Medrol 40 MG/ML IM ONE (11:33)
[2022-11-06] MEDS ORDERED: Sodium Chloride 0.9(Preservative Free) 10 ML IJ ONE (11:33)
[2022-11-06] MEDS ORDERED: Xylocaine-Mpf 2% 5 Ml Vial ONE (14:26)
[2022-11-06] MEDS ORDERED: Lactated Ringers 1,000 ML IV ONE (15:01)
[2022-11-06] MEDS ORDERED: DIPRIVAN 200 MG/20 ML IV ONE (15:15)
--- NOTE | 2022-11-06 16:37 | XRAY ---
Indication: Left L3-L5 transforaminal BRITTA. Intraoperative fluoroscopy provided for 33 seconds. 4 digital spot images submitted for interpretation demonstrates posterior needle tips projecting over the expected left L3 and L4 nerve roots. Small amount of contrast injected for needle tip placement. Correlate with intraoperative findings/report.
--- NOTE | 2022-11-07 09:54 | XRAY ---
33 seconds of fluoroscopy was used in surgery for a left L3-L5 transforaminal BRITTA.
== END 2022-11-06 15:45 | disposition home or self-care (01) ==
LOC: SDC-PAIN 11:32
PROVIDERS: ATTEND Psychiatry & Neurology Pain Medicine
DX: M54.16 Radiculopathy, lumbar region (principal); Z79.899 Other long term (current) drug therapy
CPT/HCPCS: 64483; 64484; 72100; 77003; J1030; J2704; Q9966

== ENCOUNTER 2024-02-19 12:36 | Emergency (ER) | payer OTHER ==
[2024-02-19] MEDS ORDERED: TORAdol 30 mg Injection ONE (12:48)
[2024-02-19] MEDS: TORAdol 30 mg Injection IM ONE (12:52)
[2024-02-19 13:15] VITALS: TEMP 97.9
[2024-02-19 13:23] VITALS: RESP 17
[2024-02-19 14:13] VITALS: BP 146/100; PULSE 62; O2SAT 96
--- NOTE | 2024-02-19 14:29 | XRAY ---
CLINICAL HISTORY: pain/swelling fx? COMPARISON: None TECHNIQUE: X-ray of right hand showing PA, lateral and oblique views. FINDINGS: There is a mildly displaced fracture of the shaft of the second metacarpal. Associated soft tissue swelling seen in the dorsal and the palmar aspects of the right hand. Mild degenerative changes seen in the first metacarpophalangeal joint. Small osteophyte seen arising from the head of the second metacarpal dorsal aspect. Relatively shortened fourth metacarpal. No sclerotic or lytic bony lesions IMPRESSION: 1. Mildly displaced complete fracture of shaft of second metacarpal. Associated soft tissue edema seen in the dorsal and the palmar aspects of the right hand. 2. Mild degenerative changes in the first metacarpophalangeal joint. 3. Relatively shortened fourth metacarpal. 4. Clinical correlation is recommended. Disclaimer: A subtle bone abnormality or fracture may not be readily apparent on X-rays, thus clinical correlation and further imaging including follow-up CT, MRI, or follow-up X-rays are advised as needed. 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 Electronically Signed by: Narciso Preciado MD. (02/19/2024 14:25:49 EST)
--- NOTE | 2024-02-19 15:11 | ERPHSYRPT ---
- History of Present Illness Time Seen by Provider: 02/19/24 12:44 Source: patient Exam Limitations: no limitations Patient Subjective Stated Complaint: c/o of right hand injury Triage Nursing Assessment: patient brought self to ED with c/o right hand injury. Patient states he got his hand caught in an industrial mercerizing range feeder. Patient rates pain 6/10, hand is swollen, red, tender to touch, slightly bruised, and pateint states that "It is only really affecting my thumb, pointer, and middle finger." There is a 2cm x 2cm lacteration circular in shape on the anterior side proximal of his pointer and middle fingers. Patient is slightly hypertensive, gait steady, pulses normal proximal to inury, cap refill <3 seconds, skin w/n/d, patient doesn't appear to be in any distress at this time. Physician History: 44-year-old right-handed dominant male presented in the ER with complaint of right hand pain and swelling after he accidentally stuck in the machine yesterday. Patient has a superficial abrasion on the palmar side of the hand. Patient reports taking ibuprofen at home with no significant relief and having pain with movements on the second and third metacarpal area. No numbness or tingling in the fingertips. Still able to make a fist. Diffuse swelling of the dorsum of hand. Distal neurovascular intact. No tenderness in the fingers. Superficial skin tear on the palmar side of distal hand. Intact range of motion at wrist. Marked tenderness in the second and third meta carpal area. No signs of compartment syndrome. He is given Toradol for symptomatic relief. X-rays showed fracture displaced s econd metacarpal. No other fracture or dislocation. Patient is placed in premade aluminum volar splint. I have discussed with Dr. Carney orthopedist on-call, recommended splinting, pain relief and outpatient follow-up with orthopedic on Friday morning. In the meanwhile we got another emergency, I was busy with that but patient left without informing anyone. I have called him and discussed the orthopedics recommendations and will send pain medications to his pharmacy to take as needed. Discussed signs symptoms of worsening including compartment syndrome needing emergent return to ER which she seems understanding. Allergies/Adverse Reactions: methylphenidate HCl [From Ritalin] Allergy (Intermediate, Verified 02/19/24 13:16) Hives Home Medications: Buprenorphine HCl/Naloxone HCl [Suboxone 8 mg-2 mg Tablet Sl] 2.5 ea DAILY 12/12/19 [History] Hx Tetanus, Diphtheria Vaccination/Date Given: Yes Hx Influenza Vaccination/Date Given: No Hx Pneumococcal Vaccination/Date Given: No Travel Risk - International Travel Have you traveled outside of the country in past 3 weeks: No - Emerging Infectious Disease Are you exhibiting symptoms associated with any current EIDs: No - Review of Systems Constitutional: No Symptoms Ears, Nose, & Throat: No Symptoms Respiratory: No Symptoms Cardiac: No Symptoms Abdominal/Gastrointestinal: No Symptoms Musculoskeletal: Injury, Joint Pain, Joint Swelling Neurological: No Symptoms Psychological: No Symptoms Hematologic/Lymphatic: No Symptoms - Past Medical History Pertinent Past Medical History: Yes Neurological History: No Pertinent History ENT History: No Pertinent History Cardiac History: No Pertinent History Respiratory History: No Pertinent History Endocrine Medical History: No Pertinent History Musculoskeletal History: No Pertinent History GI Medical History: GERD History: Other Psycho-Social History: No Pertinent History Male Reproductive Disorders: No Pertinent History Other Medical History: hx of kidney stones, Cellulitis in right arm 4 years ago - Past Surgical History Past Surgical History: Yes Neuro Surgical History: No Pertinent History Cardiac: No Pertinent History Respiratory: No Pertinent History Gastrointestinal: Hernia Repair Genitourinary: No Pertinent History Musculoskeletal: No Pertinent History Male Surgical History: No Pertinent History Other Surgical History: hernia repair as a child Significant Family History: no pertinent family hx - Social History Smoking Status: Current every day smoker How long have you smoked: 20+ Exposure to second hand smoke: No Alcohol Use: Socially Drug Use: marijuana Patient Lives Alone: No - Social Determinants of Health Will the patient participate in the screening: Yes Do you worry about a steady place to live?: No Do you have any problems with any of the following?: No known problems In the past 12 months,have you had to go without utilities?: No Transportation Issues: No Has anyone in your support network made you feel unsafe?: No Have you or anyone in your house had to go without enough: No - Nursing Vital Signs Nursing Vital Signs: Initial Vital Signs Temperature 97.9 F 02/19/24 13:00 Pulse Rate 73 02/19/24 13:00 Respiratory Rate 16 02/19/24 13:00 Blood Pressure 156/101 02/19/24 13:00 O2 Sat by Pulse Oximetry 98 02/19/24 13:00 Pain Scale Pain Intensity 5 - Physical Exam General Appearance: no apparent distress Neck Exam: normal inspection, full range of motion Cardiovascular/Respiratory Exam: normal breath sounds, regular rate/rhythm Back Exam: normal inspection, normal range of motion Elbow/Forearm Exam: normal inspection, no evidence of injury Wrist Exam: normal inspection, non-tender, no evidence of injury Hand Exam: abrasions (Superficial cut on the palmar side at the base of third digit), bone tenderness, limited ROM, swelling Neuro/Tendon Exam: normal sensation, normal motor functions, normal tendon functions Mental Status Exam: alert, oriented x 3, cooperative Skin Exam: normal color SpO2 Interpretation: normal SpO2: 96 O2 Delivery: Room Air Procedures - Splinting Location of Splint: Right Type of Splint: Aluminum Splint Ordered Tests: Active Orders 24 hr Category Date Time Status HAND (MINIMUM 3 VIEWS) Stat Exams 02/19/24 12:45 Completed Medication Summary Discontinued Medications Generic Name Dose Route Start Last Admin Trade Name Rudolphq PRN Reason Stop Dose Admin Ketorolac Tromethamine 30 mg 02/19/24 12:44 02/19/24 12:52 Ketorolac Tromethamine 30 Mg/Ml Inj IM 02/19/24 12:45 30 mg STAT ONE Administration Ketorolac Tromethamine Confirm 02/19/24 12:48 Ketorolac Tromethamine 30 Mg/Ml Inj Administered 02/19/24 12:49 Dose 30 mg .ROUTE .STK-MED ONE - Progress Progress: improved, pain not gone completely Progress Note: 02/19/24 15:12 44-year-old right-handed dominant male presented in the ER with complaint of right hand pain and swelling after he accidentally stuck in the machine yesterday. Patient has a superficial abrasion on the palmar side of the hand. Patient reports taking ibuprofen at home with no significant relief and having pain with movements on the second and third metacarpal area. No numbness or tingling in the fingertips. Still able to make a fist. Diffuse swelling of the dorsum of hand. Distal neurovascular intact. No tenderness in the fingers. Superficial skin tear on the palmar side of distal hand. Intact range of motion at wrist. Marked tenderness in the second and third meta carpal area. No signs of compartment syndrome. He is given Toradol for symptomatic relief. X-rays showed fracture displaced second metacarpal reviewed by me followed by official read. No other fracture or dislocation. Patient is placed in premade aluminum volar splint. I have discussed with Dr. Carney orthopedist on-call, recommended splinting, pain relief and outpatient follow-up with orthopedic on Friday. In the meanwhile we got another emergency, I was busy with that but patient left without informing anyone. I have called him and discussed the orthopedics recommendations and will send pain medications to his pharmacy to take as needed. Discussed signs symptoms of worsening including compartment syndrome needing emergent return to ER which she seems understanding. 02/19/24 15:40 Dr. Carney has talked to the patient and we will plan on surgery. Discussed with Dr.: Other (Dr. Carney orthopedic) Counseled pt/family regarding: need for follow-up, rad results Medical Desision Making - Discussion of managment Care discussed with:: specialist Reviewed:: Test results Agreed on:: Treatment plan Will see patient: In office - Diagnostic Testing Diagnostic test were ordered, analyzed, and reviewed by me: Yes Radiological Interpretation: Interpreted by me, Reviewed by me - Risk of complications The pt has a mod risk of morbidity or mortality based on: Need for prescription drug management, Need for major surgery in otherwise healthy patient - Departure Departure Disposition: Home Clinical Impression: Hand fracture, right Condition: Stable Critical Care Time: No Referrals: LOUIE CH NP [Primary Care Provider] - Follow up with PCP 1 day MITZY CARNEY MD [ACTIVE STAFF] - Follow up/PCP as directed (Friday for reevaluation appointment.) Instructions: Hand Fracture (DC) Additional Instructions: Intermittent ice application. Ibuprofen/[place] as needed for pain. Follow-up with orthopedics for reevaluation on Friday. Do not eat or drink anything after midnight/Friday night. Return to ER for increasing swelling pain, difficulty movements of the fingers, numbness or tingling sensation dista lly etc. Patient left without getting paperwork as we were busy with another emergency, have called and have discussed all these instructions. Prescriptions: Hydrocodone/Acetaminophen [Hydrocodone-Acetamin 5-325 mg] 1 tab PO Q6HPRN PRN 3 Days #10 tablet MDD 4 PRN Reason: Pain
== END 2024-02-19 15:00 ==
LOC: ED 12:36
DX: S62.320A Displaced fracture of shaft of second metacarpal bone, right hand, initial encounter for closed fracture (principal); W31.82XA Contact with other commercial machinery, initial encounter; Z79.891 Long term (current) use of opiate analgesic; Z72.0 Tobacco use
CPT/HCPCS: 73130; 96372; 99283; A4570; J1885

== ENCOUNTER 2024-02-23 09:19 | Day surgery (SDC) | payer OTHER ==
[2024-02-23] MEDS ORDERED: Lactated Ringers 1,000 ML IV ONE (09:50)
[2024-02-23 09:54] VITALS: RESP 16
[2024-02-23] MEDS ORDERED: CEFAZOLIN 2 GM/100 ML NaCl 2 GM/100 ML IVPB IV ONE (10:00)
[2024-02-23] MEDS: Lactated Ringers 1,000 ML IV SCH (10:00)
[2024-02-23] MEDS: CEFAZOLIN 2 GM/100 ML NaCl 2 GM/100 ML IVPB IV SCH (10:01)
[2024-02-23] MEDS ORDERED: BRIDION 200MG/2ML IV ONE (10:34)
[2024-02-23] MEDS ORDERED: SUBLIMAZE 100 MCG/2 ML ONE ×2 (10:34→11:42)
[2024-02-23] MEDS ORDERED: TORAdol 30 mg Injection ONE (10:34)
[2024-02-23] MEDS ORDERED: Decadron 4 MG INJ ONE (10:34)
[2024-02-23] MEDS ORDERED: Zofran 4 MG/2 ML VIAL ONE ×2 (10:34→12:04)
[2024-02-23] MEDS ORDERED: ROCURONIUM BROMIDE IV ONE (10:34)
[2024-02-23] MEDS ORDERED: DIPRIVAN 200 MG/20 ML IV ONE (10:34)
[2024-02-23] MEDS ORDERED: Xylocaine-Mpf 2% 5 Ml Vial ONE (10:34)
[2024-02-23] MEDS ORDERED: Marcaine Mpf 0.5% Vial 30 Ml ONE (10:59)
[2024-02-23] MEDS ORDERED: EXPAREL 133 MG/10 ML VIAL IJ ONE (10:59)
[2024-02-23 12:25] VITALS: TEMP 98.1
[2024-02-23 12:39] VITALS: BP 136/88; PULSE 67; O2SAT 96
--- NOTE | 2024-02-24 11:08 | OP ---
SURGERY DATE/TIME: 02/23/2024 [id number] PREOPERATIVE DIAGNOSIS: Right second metacarpal shaft fracture. POSTOPERATIVE DIAGNOSIS: Right second metacarpal shaft fracture. PROCEDURE: Open reduction and internal fixation right second metacarpal shaft fracture. SURGEON: Te Zuñiga MD ANESTHESIA: General with postop peripheral block. FINDINGS: An oblique midshaft fracture with 100% displacement. INDICATIONS: The patient is a 44-year-old white male who had an injury to his hand from a mixer 5 days ago. He had a closed injury. It was felt this should be reduced and stabilized due to the displacement of the fracture which resulted in a malunion. DESCRIPTION OF PROCEDURE AND FINDINGS: The patient was seen preoperatively in the holding room. I identified the right hand second metacarpal was correct. This was initialed by me. He had 2 g of Kefzol and was taken to OR where he had general anesthesia. He was positioned supine with his right arm on the hand table. Had sterile prepping and draping of the right upper extremity. Time-out was performed by me. Tourniquet was inflated around the upper arm to 250 mmHg. Total tourniquet time was approximately 10 minutes. C-arm was used to locate the fracture and a 3 cm incision was made longitudinally over this. Suction was done down to the fracture, avoiding tendon and neurovascular structures. The fracture was cleaned up and then a 0.045 K-wire was driven up the distal segment with the MP joint flexed 90 degrees. This was then retrograded across the fracture with the fracture held reduced with the K-wire placed at the base of the second metacarpal. C-arm views showed good reduction in pin length. The pin was then cut off above the skin and bent. The tourniquet was released. The wound was irrigated with saline. The subcutaneous tissue was then closed with 3-0 Vicryl interrupted and the skin with 4-0 nylon interrupted sutures. Sterile dressings were applied and the patient was placed in a dorsal block splint with the MP joints in about 70 degrees of flexion and IP joints in neutral, the wrist in neutral. The patient was left stable for the anesthesia to do a nerve block. ESTIMATED BLOOD LOSS: Zero. FLUIDS: Per the anesthesia records. SPECIMENS: None. DRAINS: None. COMPLICATIONS: None. PLAN: For patient to return on 03/25 for pin removal. He will keep the splint on until then. He will go home with Percocet.
== END 2024-02-23 12:53 | disposition home or self-care (01) ==
LOC: SDC 09:19
PROVIDERS: ATTEND Orthopaedic Surgery
DX: S62.320A Displaced fracture of shaft of second metacarpal bone, right hand, initial encounter for closed fracture (principal)
CPT/HCPCS: 26615; J0690; J1100; J1885; J2405; J2704; J3010

== ENCOUNTER 2024-02-29 07:14 | Emergency (ER) | payer OTHER ==
[2024-02-29 07:29] VITALS: RESP 20; TEMP 96.9
[2024-02-29 07:38] VITALS: BP 148/92; PULSE 101
[2024-02-29 07:39] VITALS: O2SAT 97
--- NOTE | 2024-02-29 07:39 | ERPHSYRPT ---
- History of Present Illness Time Seen by Provider: 02/29/24 07:36 Source: patient Exam Limitations: no limitations Patient Subjective Stated Complaint: wound check-needs new splint Triage Nursing Assessment: Patient ambulated back to ED and transferred self to bed. Patient A+O X 3. Patient's skin pink, warm and dry. Patient states he had recent hand surgery on February 23, 2024 at [facility] by Dr. Guevara. Patient states he got his splint wet last night and his dressing around it is coming apart. Patient requesting new splint and dressing. Patient denies pain or discomfort. Physician History: Patient states he had recent hand surgery on February 23, 2024 at [facility] by Dr. Guevara. Patient states he got his splint wet last night and his dressing around it is coming apart. Patient requesting new splint and dressing. Patient denies pain or discomfort. Allergies/Adverse Reactions: methylphenidate HCl [From Ritalin] Allergy (Intermediate, Verified 02/29/24 07:20) Hives Home Medications: Cyclobenzaprine HCl 10 mg [Cyclobenzaprine 10 MG] 10 mg PO DAILY 02/23/24 [History] Hx Tetanus, Diphtheria Vaccination/Date Given: No Hx Influenza Vaccination/Date Given: No Hx Pneumococcal Vaccination/Date Given: No Immunizations Up to Date: Yes Travel Risk - International Travel Have you traveled outside of the country in past 3 weeks: No - Emerging Infectious Disease Are you exhibiting symptoms associated with any current EIDs: No - Review of Systems Constitutional: No Symptoms Eyes: No Symptoms Ears, Nose, & Throat: No Symptoms Respiratory: No Symptoms Cardiac: No Symptoms Abdominal/Gastrointestinal: No Symptoms Genitourinary Symptoms: No Symptoms Musculoskeletal: No Symptoms Skin: No Symptoms Neurological: No Symptoms Psychological: No Symptoms - Past Medical History Pertinent Past Medical History: Yes Neurological History: No Pertinent History ENT History: No Pertinent History Cardiac History: No Pertinent History Respiratory History: No Pertinent History Endocrine Medical History: No Pertinent History Musculoskeletal History: No Pertinent History GI Medical History: GERD History: Other Psycho-Social History: No Pertinent History Male Reproductive Disorders: No Pertinent History Other Medical History: hx of kidney stones, Cellulitis in right arm 4 years ago - Past Surgical History Past Surgical History: Yes Neuro Surgical History: No Pertinent History Cardiac: No Pertinent History Respiratory: No Pertinent History Gastrointestinal: Hernia Repair Genitourinary: No Pertinent History Musculoskeletal: Orthopedic Surgery Male Surgical History: No Pertinent History Other Surgical History: hernia repair as a child. surgery to right hand Significant Family History: no pertinent family hx - Social History Smoking Status: Current every day smoker How long have you smoked: 20+ Exposure to second hand smoke: No Alcohol Use: Socially Drug Use: marijuana Patient Lives Alone: No - Social Determinants of Health Will the patient participate in the screening: Yes Do you worry about a steady place to live?: No Do you have any problems with any of the following?: No known problems In the past 12 months,have you had to go without utilities?: No Transportation Issues: No Has anyone in your support network made you feel unsafe?: No Have you or anyone in your house had to go without enough: No - Nursing Vital Signs Nursing Vital Signs: Initial Vital Signs Temperature 96.9 F 02/29/24 07:22 Pulse Rate 111 H 02/29/24 07:22 Respiratory Rate 20 02/29/24 07:22 Blood Pressure 150/97 02/29/24 07:22 O2 Sat by Pulse Oximetry 97 02/29/24 07:22 Pain Scale Pain Intensity 0 - Physical Exam General Appearance: no apparent distress Eye Exam: PERRL/EOMI Ears, Nose, Throat Exam: normal ENT inspection Neck Exam: normal inspection Respiratory Exam: normal breath sounds Cardiovascular Exam: regular rate/rhythm Gastrointestinal/Abdomen Exam: soft Back Exam: normal inspection Extremity Exam: normal inspection Neurologic Exam: alert, oriented x 3, cooperative Skin Exam: normal color SpO2 Interpretation: normal SpO2: 97 O2 Delivery: Room Air Procedures - Splinting Time of Procedure: 07:37 Location of Splint: Right, Hand Type of Splint: Orthoglass Short Arm Splint Splint Applied By: ED Nurse Pre-Proc Neuro Vasc Exam: normal Post-Proc Neuro Vasc Exam: neurovascular intact - Course Nursing assessment & vital signs reviewed: Yes - Progress Progress: improved Counseled pt/family regarding: diagnosis, need for follow-up Medical Desision Making - Diagnostic Testing Diagnostic test were ordered, analyzed, and reviewed by me: No - Risk of complications Minimal Risk: Minimal risk of morbidity - Departure Departure Disposition: Home Clinical Impression: Hand fracture, right Qualifiers: Encounter type: subsequent encounter Fracture type: closed Fracture healing: with routine healing Qualified Code(s): S62.91XD - Unspecified fracture of right wrist and hand, subsequent encounter for fracture with routine healing Condition: Stable Critical Care Time: No Referrals: LOUIE CH, TOUR COORDINATOR [Primary Care Provider] - Follow up/PCP as directed Instructions: Wound Care (DC) Additional Instructions: Discharge/Care Plan JESSY OLIVIA was seen on 02/29/24 in the Emergency Room. The patient was counseled regarding Diagnosis,Lab results, Imaging studies, need for follow up and when to return to the Emergency Room. Prescriptions given: Discharge Note I have spoken with the patient and/or caregivers. I have explained the patient's condition, diagnosis and treatment plan based on the information available to me at this time. I have answered the patient's and/or caregiver's questions and addressed any concerns. The patient and/or caregivers have as good understanding of the patient's diagnosis, condition and treatment plan as can be expected at this point. The vital signs have been stable. The patient's condition is stable and appropriate for discharge from the emergency department. The patient will pursue further outpatient evaluation with the primary care physician or other designated or consulting physician as outlined in the discharge instructions. The patient and/or caregivers are agreeable to this plan of care and follow-up instructions have been explained in detail. The patient and/or caregivers have received these instruction. The patient/and or caregivers are aware that any significant change in condition or worsening of symptoms should prompt an immediate return to this or the closest emergency department or call 911. JESSY OLIVIA was seen on 02/29/24 n the Emergency Room. At that time you were treated for an emergent condition, during your visit Laboratory, Radiology and/or other procedures may have been ordered. It is very important that you follow-up with your Primary Care Physician LOUIE CH within the next 24-48 hours to review your Emergency Room visit and the final results of testing that was ordered. Some test results such as Urine Cultures, Blood Cultures, and other cultures if ordered will not be finalized for 24-48 hours. If you do not have a Primary Care Provider please call the medical records department at [phone] ext [phone] to obtain a copy of your results or you may sign into our patient portal to obtain these results by visiting us @ [email or web address] and completing the following steps: 1. Click on the Patient Portal link 2. Click the Patient Self Enrollment Link to complete the enrollment form and entering your 3. Once the enrollment form is completed you will receive an email with a temporary ID and password at the email address you provided. 4. Next choose a user name and password. Your user name must be at least 4 characters long and your password must be at least 4 characters long. 5. Choose a security question from the list and provide your answer to the question. If you already have signed into the Health Portal you may access your Health Care Information 14/10 by the following steps: 1. Login to our website @ [email or web address] 2. Enter your original user name and password. FAQS The [facility] Health Portal is an online tool that contains your Lab Results, Radiology Reports, Visit History, Discharge Instructions and Health Summary Lab and Radiology Results will not be available for 72 hours on the portal. The Portal is a secure site, passwords are encryted and URLs are re-written so they cannot be copied and pasted. You and authorized family members are the only ones who can access your Portal. Also there is a timeout feature that protects your information if you leave the Portal page open. If you have technical difficulty please use the Contact Us link on the page this will allow you to submit any questions you have regarding the Portal or you may contact the Medical Record Department at [phone].
== END 2024-02-29 07:41 | disposition home or self-care (01) ==
LOC: ED 07:14
DX: S62.91XD Unspecified fracture of right hand, subsequent encounter for fracture with routine healing (principal)
CPT/HCPCS: 29125; 99283